=== PATIENT | female | born 1955 | race Caucasian/White ===

== ENCOUNTER 2019-12-12 11:43 | Outpatient (CLI) | payer BC ==
--- NOTE | 2019-12-12 14:00 | RAD ---
SI JOINTS THREE VIEWS: 12/12/19 HISTORY: SI joint pain. SI joints are symmetric. No ankylosis or sclerosis. IMPRESSION: Unremarkable SI joints. POS: [facility]
--- NOTE | 2019-12-12 14:01 | RAD ---
RIGHT KNEE FOUR VIEWS: 12/12/19 HISTORY: Right knee pain. Some spiking to the tibial spines. There are tiny patellofemoral spurs. No joint effusion. IMPRESSION: Minimal arthritic changes of the knee. POS: [facility]
== END 2019-12-12 11:44 | disposition home or self-care (01) ==
LOC: SCSRAD 11:43
PROVIDERS: ATTEND Internal Medicine Rheumatology
DX: M46.1 Sacroiliitis, not elsewhere classified (principal); M17.11 Unilateral primary osteoarthritis, right knee
CPT/HCPCS: 72202